=== PATIENT | female | born 1985 | race Caucasian/White ===

== ENCOUNTER → 2020-07-17 15:15 | Outpatient (BNVA) | payer BC, SELFPAY | PROVIDERS: Family Provider Pediatrics Adolescent Medicine; Visit Provider Nurse Practitioner Family | DX: Z11.59 Encounter for screening for other viral diseases (principal) | CPT/HCPCS: 87635 ==

== ENCOUNTER → 2020-08-25 12:50 | Outpatient (BNVA) | payer BC, SELFPAY | PROVIDERS: Family Provider Pediatrics Adolescent Medicine; Visit Provider Nurse Practitioner Family | DX: Z20.828 Contact with and (suspected) exposure to other viral communicable diseases (principal) | CPT/HCPCS: 87635 ==

== ENCOUNTER 2021-05-01 09:10 | Emergency (ER) | payer BC, SELFPAY ==
--- NOTE | 2021-05-01 09:18 | CT_ITS ---
WS: [id number] CT ABDOMEN PELVIS NONCONTRAST AND CONTRAST TECHNIQUE: Noncontrast and contrast enhanced CT of the abdomen and pelvis with coronal and sagittal r eformatted images. CLINICAL INFORMATION: abd pain, nv COMPARISON: None. DLP: 577.02 mGy.cm (accession [id number]), 799.54 mGy.cm (accession [id number]) All CT scans at [facility] use at least one of these dose optimization techniques: automat ed exposure control; mA and/or kV adjustment per patient size (includes targeted exams where dose is matched to clinical indication); or iterative reconstruction. FINDINGS: Adrenal glands are normal. No obstructing renal or ureteral calculi. No hydronephrosis in either kidn ey. Mild diffuse fatty infiltration of the liver. Normal gallbladder. Normal portal vein and splenic vein. Fluid distended stomach with air-fluid level. Mild submucosal enhancement involving the stomach and proximal duodenum can be seen with gastroduodenitis. Lung bases are well aerated. Normal spleen. Adrenal glands are normal. Normal renal parenchymal enhancement. No hydronephrosis. Normal caliber abdominal aorta. Pancreas is normal. Tiny fat-containing umbilical hernia. Normal sigm oid colon. No evidence of small or large bowel obstruction. Colon is decompressed. Small amount of martínez bmucosal enhancement and induration more prominent involving the transverse colon. Small amount of free fluid in the cul-de-sac. Heterogeneous uterine enhancement likely physiologic. B ilateral ovarian cysts largest on the left measuring 10 x 10 x 18 mm with peripheral enhancement cons istent with corpus luteum or hemorrhagic cyst. CT/CT kidney stone [id number] IMPRESSION: 1. Mild diffuse fatty infiltration of the liver. 2. Normal bilateral renal parenchymal enhancement. No hydronephrosis. No obstr ucting renal or ureteral calculi. 3. Small amount of free fluid in the cul-de-sac with peripherally enhancing le ft corpus luteum or a hemorrhagic cyst measuring 10 x 10 x 18 mm. 4. Distended fluid-filled stomach with air-fluid level. Mild gastroduodenal en hancement can be seen with gastroduodenitis. 5. Colon is decompressed with mild submucosal enhancement involving the transv erse colon. This may be incidental but recommend correlation for infectious or inflammatory colitis symptoms. Notified Dr. Gage at 05/01/2021 11:24 AM.
[2021-05-01 09:27] VITALS: BP 153/105; PULSE 65; RESP 18; TEMP 36.6; O2SAT 100; BMI 23.9
--- NOTE | 2021-05-01 09:55 | PC.PHAR ---
ELIZABETH FROM [facility] [phone] STATES THE PT WAS TAKING SUBUTEX 8MG QAM AND 10MG HS-STATES THE DR INCREASED TODAY TO 10MG BID STATES THE PT ISNT AWARE OF THE CHANGE YET
--- NOTE | 2021-05-01 10:02 | CT_ITS ---
WS: [id number] CT ABDOMEN PELVIS NONCONTRAST AND CONTRAST TECHNIQUE: Noncontrast and contrast enhanced CT of the abdomen and pelvis with coronal and sagittal r eformatted images. CLINICAL INFORMATION: abd pain, nv COMPARISON: None. DLP: 577.02 mGy.cm (accession [id number]), 799.54 mGy.cm (accession [id number]) All CT scans at [facility] use at least one of these dose optimization techniques: automat ed exposure control; mA and/or kV adjustment per patient size (includes targeted exams where dose is matched to clinical indication); or iterative reconstruction. FINDINGS: Adrenal glands are normal. No obstructing renal or ureteral calculi. No hydronephrosis in either kidn ey. Mild diffuse fatty infiltration of the liver. Normal gallbladder. Normal portal vein and splenic vein. Fluid distended stomach with air-fluid level. Mild submucosal enhancement involving the stomach and proximal duodenum can be seen with gastroduodenitis. Lung bases are well aerated. Normal spleen. Adrenal glands are normal. Normal renal parenchymal enhancement. No hydronephrosis. Normal caliber abdominal aorta. Pancreas is normal. Tiny fat-containing umbilical hernia. Normal sigm oid colon. No evidence of small or large bowel obstruction. Colon is decompressed. Small amount of martínez bmucosal enhancement and induration more prominent involving the transverse colon. Small amount of free fluid in the cul-de-sac. Heterogeneous uterine enhancement likely physiologic. B ilateral ovarian cysts largest on the left measuring 10 x 10 x 18 mm with peripheral enhancement cons istent with corpus luteum or hemorrhagic cyst. CT/CT abdomen pelvis w con* [id number] IMPRESSION: 1. Mild diffuse fatty infiltration of the liver. 2. Normal bilateral renal parenchymal enhancement. No hydronephrosis. No obstr ucting renal or ureteral calculi. 3. Small amount of free fluid in the cul-de-sac with peripherally enhancing le ft corpus luteum or a hemorrhagic cyst measuring 10 x 10 x 18 mm. 4. Distended fluid-filled stomach with air-fluid level. Mild gastroduodenal en hancement can be seen with gastroduodenitis. 5. Colon is decompressed with mild submucosal enhancement involving the transv erse colon. This may be incidental but recommend correlation for infectious or inflammatory colitis symptoms. Notified Dr. Gage at 05/01/2021 11:24 AM.
--- NOTE | 2021-05-01 10:07 | W.ED.ABDPA2 ---
HPI - Abdominal Pain General: Chief Complaint: Abdominal Pain Stated Complaint: SEVERE ABD PAIN N/V/D Time Seen by Provider: 05/01/21 09:25 History of Present Illness: HPI narrative: 36-year-old female presents emergency room complaining of nausea and vomiting. Patient states she has had this intermittently for the last year today has been much more intense. She is not had any ellen hematemesis but at times old vomit to the point where she has small streaks of blood. Patient is a recovering alcoholic takes Subutex but admits that she does drink even when she is taking it had several drinks last night. She denies any hematochezia. She is not previously been evaluated for this. She denies any dysuria urgency or frequency no hematuria. No previous abdominal surgeries. She refers most of the pain to the periumbilical region but states it is very diffuse. No flank pain. No chest pain or shortness of breath. Patient originally arrived she was having cramping in the extremities and circumoral numbness. MD elicited complaint: abdominal pain Onset (ago): month(s) Pain Consistency: intermittent Location: Diffuse Severity: severe Quality: cramping Radiation: none Exacerbating factors: other (Drinking alcohol) Relieving factors: nothing Associated Symptoms: Reports anorexia, bloating, coffee ground emesis, GI cramping, loose stools, nausea, poor appetite and vomiting; Denies belching, change in bowel habits, change in stool character, chills, constipation, diarrhea, dyspepsia, dysuria, excessive flatus, fever(s), heartburn, hematochezia, hematuria, hematemesis, fecal incontinence, melena and syncope Related Data: Date of Last Menstrual Period: 04/07/21 Review of Systems Const: Denies: fever(s) or chills ENMT: Denies: throat pain, ear or mastoid pain, nasal discharge or nasal congestion Card: Denies: syncope Resp: Denies: dyspnea, productive cough or non-productive cough GI: Reports: nausea, vomiting, coffee ground emesis, bloating and GI cramping; Denies: hematemesis, heartburn, diarrhea, constipation, belching, excessive flatus, fecal incontinence, change in bowel habits, change in stool character, hematochezia or melena : Denies: dysuria or hematuria Skin/Breast: Denies: rash or pruritus [facility] ED PFSH: Medical History (Updated 05/01/21 @ 11:49 by Tristen Gage DO) No pertinent past medical history Patient denies history of PE/DVT/clotting disorders, asthma, lung, liver heart, thyroid, kidney disease, hypertension or diabetes. PCP: Dr. Bey Surgical History S/P dilatation and curettage Done for interruption of Family History Grandfather Diabetes paternal Prostate cancer paternal Denies family history of Colon cancer Ovarian cancer Heart disease Hyperlipidemia Breast cancer Hypertension Uterine cancer Thyroid condition Stroke Social History Smoking and tobacco status: former smoker Alcohol intake: current Additional social history: - Tobacco Use: Started smoking at age 16 and smoked socially off and on until age 29 with she quit. 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 Female Reproductive History: Date of last menstrual period: 04/07/21 Physical Exam Const: ORIENTATION/CONSCIOUSNESS: Yes awake, Yes oriented to person, Yes oriented to place and Yes oriented to time HENMT: COMMON NORMALS: normocephalic and atraumatic HEAD & SCALP: normocephalic and atraumatic Neck/C-Spine: COMMON NORMALS: no JVD Resp: COMMON NORMALS: normal respiratory effort, No retractions, No use of accessory muscles and clear to auscultation bilaterally AUSCULTATION: clear to auscultation bilaterally Cardio: COMMON NORMALS: no JVD, regular rate, regular rhythm and No murmurs present (Cardio) RATE: regular rate RHYTHM: regular rhythm GI: COMMON NORMALS: No hepatosplenomegaly present AUSCULTATION: Yes normoactive bowel sounds PALPATION: Yes Tenderness to palpation present (GI) (Diffuse tenderness), No Guarding due to palpation present (GI) and Yes No hepatosplenomegaly present Extremity: COMMON NORMALS: normal to inspection, capillary refill normal, no clubbing, cyanosis or edema, no calf tenderness and no pedal edema Neuro: SENSORIUM/ORIENTATION: Yes oriented to person, Yes oriented to place and Yes oriented to time Skin: COMMON NORMALS: no rashes or lesions noted GENERAL SKIN EXAM: no rashes or lesions noted Course Vital Signs: Vital signs: Vital Signs Temperature 97.9 F 05/01/21 09:27 Pulse Rate 89 05/01/21 12:04 Respiratory Rate 16 05/01/21 12:04 Blood Pressure 98/78 05/01/21 12:04 Pulse Oximetry 99 05/01/21 12:04 MDM - Abdominal Pain MDM Narrative: Medical decision making narrative: Reviewed lab findings with the patient. Her blood alcohol is significantly elevated although she states she has not drank for some time. I think this is largely a result of drinking while in the Subutex. Encourage patient stop drinking also encouraged her to follow-up with an outpatient treatment program such as [facility]. Lab Data: Labs: Lab Results 05/01/21 05/01/21 05/01/21 Range/Units 10:15 10:15 10:46 WBC 14.1 H (4.0-10.0) 10^3/ uL RBC 4.16 (4.1-5.3) 10^6/u L Hgb 13.3 (11.5-15.3) g/dL Hct 39.7 (37.0-47.0) % MCV 95.4 (81-99) fL MCH 32.0 (28.0-34.0) pg MCHC 33.5 (30.0-36.0) g/dL RDW 13.5 (12.1-15.1) % Plt Count 312 (130-400) 10^3/c mm MPV 10.4 (7.4-10.4) fL Neut % (Auto) 83.9 % Lymph % (Auto) 11.5 % [place] % (Auto) 2.8 % Eos % (Auto) 0.2 % Baso % (Auto) 0.9 % Neut # (Auto) 11.79 H (1.8-7.7) 10^3/u L Lymph # (Auto) 1.6 (0.8-4.8) 10^3/u L [place] # (Auto) 0.4 (0.2-0.9) 10^3/u L Eos # (Auto) 0.0 (0.0-0.8) 10^3/u L Baso # (Auto) 0.1 (0.0-0.1) 10^3/u L Nucleated RBC % (a uto) 0 % Nucleated RBCs # 0.0 /100WBC Sodium (136-145) mmol/L Potassium (3.5-5.1) mmol/L Chloride (98-107) mmol/L Carbon Dioxide (22-29) mmol/L Anion Gap (5-19) BUN (6-20) mg/dL Creatinine (0.5-0.9) mg/dL GFR Calculation (90-130) mL/min Glucose (65-115) mg/dL Calculated Osmolal ity (285-295) mOsm/k g Calcium (8.5-10.5) mg/dL Total Bilirubin (0.15-1.2) mg/dL AST (0-32) U/L ALT (0-33) U/L Alkaline Phosphata se (35-105) IU/L Total Protein (6.6-8.7) g/dL Albumin (3.5-5.2) g/dL Globulin (1.3-4.6) g/dL Lipase (13-60) U/L HCG, Qual Negative (Negative) Urine Color Yellow (Yellow) Urine Appearance Clear (CLEAR) Urine pH 6 (5-7) Ur Specific Gravit y 1.015 (1.005-1.030) Urine Protein Neg (Negative) Urine Glucose (UA) Norm (Normal) Urine Ketones 2+ H (Negative) Urine Blood Neg (Negative) Urine Nitrate Negative (Negative) Urine Bilirubin Neg (Negative) Urine Urobilinogen Norm (Negative) mg/dL Ur Leukocyte Ying ase Negative (Negative) Ethyl Alcohol (0-10) mg/dL Serum Ketones (Negative) 05/01/21 05/01/21 05/01/21 Range/Units 10:46 10:46 10:46 WBC (4.0-10.0) 10^3/ uL RBC (4.1-5.3) 10^6/u L Hgb (11.5-15.3) g/dL Hct (37.0-47.0) % MCV (81-99) fL MCH (28.0-34.0) pg MCHC (30.0-36.0) g/dL RDW (12.1-15.1) % Plt Count (130-400) 10^3/c mm MPV (7.4-10.4) fL Neut % (Auto) % Lymph % (Auto) % [place] % (Auto) % Eos % (Auto) % Baso % (Auto) % Neut # (Auto) (1.8-7.7) 10^3/u L Lymph # (Auto) (0.8-4.8) 10^3/u L [place] # (Auto) (0.2-0.9) 10^3/u L Eos # (Auto) (0.0-0.8) 10^3/u L Baso # (Auto) (0.0-0.1) 10^3/u L Nucleated RBC % (a uto) % Nucleated RBCs # /100WBC Sodium 141 (136-145) mmol/L Potassium 3.6 (3.5-5.1) mmol/L Chloride 99 (98-107) mmol/L Carbon Dioxide 16 L (22-29) mmol/L Anion Gap 29.6 H (5-19) BUN 8 (6-20) mg/dL Creatinine 0.6 (0.5-0.9) mg/dL GFR Calculation 113.1 (90-130) mL/min Glucose 94 (65-115) mg/dL Calculated Osmolal ity 290 (285-295) mOsm/k g Calcium 9.0 (8.5-10.5) mg/dL Total Bilirubin 0.3 (0.15-1.2) mg/dL AST 23 (0-32) U/L ALT 16 (0-33) U/L Alkaline Phosphata se 65 (35-105) IU/L Total Protein 7.8 (6.6-8.7) g/dL Albumin 5.3 H (3.5-5.2) g/dL Globulin 2.5 (1.3-4.6) g/dL Lipase 9 L (13-60) U/L HCG, Qual (Negative) Urine Color (Yellow) Urine Appearance (CLEAR) Urine pH (5-7) Ur Specific Gravit y (1.005-1.030) Urine Protein (Negative) Urine Glucose (UA) (Normal) Urine Ketones (Negative) Urine Blood (Negative) Urine Nitrate (Negative) Urine Bilirubin (Negative) Urine Urobilinogen (Negative) mg/dL Ur Leukocyte Ying ase (Negative) Ethyl Alcohol 164 H (0-10) mg/dL Serum Ketones Negative (Negative) Discharge Plan Discharge Patient Disposition: Home Clinical Impression: Acute alcoholic gastritis, Alcoholism Condition: Stable Prescriptions: New Zofran 4 mg tablet 4 mg PO Q6H PRN (Reason: nausea and vomiting) Qty: 20 RF: 0 Prilosec OTC 20 mg tablet,delayed release (DR/EC) 20 mg PO DAILY 28 Days RF: 0 No Action hydroxyzine HCl 25 mg tablet 12.5 - 25 mg PO Q4H PRN (Reason: Itching) RF: 0 mupirocin 2 % ointment 1 applic TOPICAL BID RF: 0 Subutex 2 mg Tablet, Sublingual See Rx Instructions .ROUTE .COMPLEX RF: 0 Discharge Orders: Discharge ED (Routine); Ordered 05/01/21 Ordered By: Tristen Gage Referrals: Jaycob Levy MD [Primary Care Provider] - Discharge Diet: Usual diet Discharge Activity: Limit activity as instructed Patient Instructions: Opioid Safety Activity Restrictions/Additional Instructions: Recommend you abstain from alcohol completely. Also recommend you seek out assistance with alcohol abstinence. [facility] here in [place] can be of assistance their phone number is [phone]. 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
[2021-05-01 10:27] LABS: HCG Qualitative Urine. Negative (Negative)
[2021-05-01 10:54] LABS: Basophils # 0.1 10^3/uL (0.0-0.1); Basophils % 0.9 %; Eosinophils % 0.2 %; Hematocrit 39.7 % (37.0-47.0); Hemoglobin 13.3 g/dL (11.5-15.3); Lymphocytes # 1.6 10^3/uL (0.8-4.8); Lymphocytes % 11.5 %; Mean Corpuscular HGB Conc 33.5 g/dL (30.0-36.0); Mean Corpuscular Volume 95.4 fL (81-99); Mean Platelet Volume 10.4 fL (7.4-10.4); Monocytes # 0.4 10^3/uL (0.2-0.9); Monocytes % 2.8 %; Neutrophils # 11.79 10^3/uL (1.8-7.7); Neutrophils % 83.9 %; Nucleated Red Blood Cells % 0 %; Platelet Count 312 10^3/cmm (130-400); Red Blood Count 4.16 10^6/uL (4.1-5.3); Red Cell Distribution Width 13.5 % (12.1-15.1); White Blood Count 14.1 10^3/uL (4.0-10.0)
[2021-05-01 11:01] LABS: Ketone (Acetest) Serum Negative (Negative)
[2021-05-01 11:02] VITALS: BP 135/87; PULSE 61; O2SAT 97
[2021-05-01] MEDS: iohexol 300 mg/mL 100 mL Btl IV (11:09)
[2021-05-01 11:15] LABS: Add Urine Microscopic? NO; Charge for UA Resulting for Rev
[2021-05-01 11:23] LABS: Alanine Aminotransferase 16 U/L (0-33); Albumin Level 5.3 g/dL (3.5-5.2); Alcohol Level 164 mg/dL (0-10); Alkaline Phosphatase 65 IU/L (35-105); Anion Gap 29.6 (5-19); Aspartate Amino Transferase 23 U/L (0-32); Blood Urea Nitrogen 8 mg/dL (6-20); Carbon Dioxide 16 mmol/L (22-29); Chloride 99 mmol/L (98-107); Globulin 2.5 g/dL (1.3-4.6); Glomerular Filtration Rate 113.1 mL/min (90-130); Glucose 94 mg/dL (65-115); Osmolality Calculated 290 mOsm/kg (285-295); Potassium 3.6 mmol/L (3.5-5.1); Sodium 141 mmol/L (136-145); Total Bilirubin 0.3 mg/dL (0.15-1.2); Total Protein 7.8 g/dL (6.6-8.7)
[2021-05-01] MEDS: ondansetron 2 mg/ML SDV 2 mL 4 MG IVP (11:26)
[2021-05-01] MEDS: LORazepam 2 mg/mL INJ 1 mL IVP (11:27)
[2021-05-01 11:34] LABS: Bilirubin Urine Neg (Negative); Blood Urine Neg (Negative); Glucose Urine UA Norm (Normal); Ketones Urine 2+ (Negative); Leukocyte Esterase Urine Negative (Negative); Nitrate Urine Negative (Negative); Protein Urine Neg (Negative); Specific Gravity, Urine 1.015 (1.005-1.030); Urine Appearance Clear (CLEAR); Urine Color Yellow (Yellow); Urobilinogen Urine Norm (Negative); pH Urine 6 (5-7)
[2021-05-01] MEDS: pantoprazole 40 mg SDV IVP (11:36)
[2021-05-01] MEDS: sodium chloride 0.9% 1,000 ML 999 ML IV (11:36)
[2021-05-01] MEDS: lidocaine 2% viscous 15 ML, aluminum-mag hydrox-simethicon 30 ML, sucralfate oral liq 1 GM PO (11:39)
[2021-05-01 11:44] VITALS: BP 109/81; PULSE 82; RESP 17; O2SAT 100
[2021-05-01 11:50] LABS: Lipase 9 U/L (13-60)
[2021-05-01 12:04] VITALS: BP 98/78; PULSE 89; RESP 16; O2SAT 99
== END 2021-05-01 12:08 | disposition home or self-care (01) ==
PROVIDERS: Nurse Practitioner Family; Emergency Provider Family Medicine; PCP Family Medicine
DX: K29.20 Alcoholic gastritis without bleeding (principal); F10.20 Alcohol dependence, uncomplicated; Z87.891 Personal history of nicotine dependence
CPT/HCPCS: 74176; 74177; 80053; 80307; 81003; 81025; 82009; 83690; 85025; 96374; 96375; 99284; C9113; J2060; J2405; J7030; Q9967

== ENCOUNTER → 2021-07-04 15:03 | Outpatient (BNVA) | payer BC, SELFPAY | PROVIDERS: PCP Family Medicine; Referring Provider Family Medicine; Visit Provider Dermatology | DX: R21 Rash and other nonspecific skin eruption (principal) | CPT/HCPCS: 87220 ==

== ENCOUNTER 2022-02-03 01:00 | Emergency (ER) | payer BC, SELFPAY ==
[2022-02-03 01:07] VITALS: BP 164/104; PULSE 97; RESP 24; TEMP 36.6; O2SAT 99; BMI 25.7
[2022-02-03 01:10] VITALS: BP 103/74; PULSE 73; RESP 18; O2SAT 99
--- NOTE | 2022-02-03 01:11 | ED_ITS ---
Documented by User: CHANDRAKANT Krishnamurthy 02/03/22 02:45 HPI - Wound/Laceration General: Chief Complaint: Wound/Laceration Stated Complaint: 2 laceration left arm Time Seen by Provider: 02/03/22 01:10 History of Present Illness: 36-year-old female comes in today with complaints of injury to the left forearm. Patient was riding a skateboard and lost control and fell into a giovany wire fence. Patient has some abrasions to bilateral knees. Patient has 2 significant lacerations to the left forearm. Patient does report ingesting 2 beers prior to arrival to the ER. Patient appears well. Patient appears no acute distress. Review of Systems General: Reports: 10 or more systems reviewed and unremarkable except in HPI and below Card: Denies: chest pain Resp: Denies: dyspnea Musc: Denies: neck pain Skin/Breast: Denies: rash PFS ED PFSH: Medical History No pertinent past medical history Denies diabetes, asthma, hypertension, seizures, DVT/PE. PCP: Dr. Levy Surgical History S/P dilatation and curettage 2006-done for interruption of Family History Grandfather Diabetes paternal Prostate cancer paternal Denies family history of Colon cancer Ovarian cancer Heart disease Hyperlipidemia Breast cancer Hypertension Uterine cancer Thyroid condition Stroke Female Reproductive History: Date of last menstrual period: 04/07/21 Physical Exam Const: COMMON NORMALS: alert HENMT: COMMON NORMALS: normocephalic HEAD & SCALP: normocephalic Neck/C-Spine: COMMON NORMALS: full ROM Resp: COMMON NORMALS: normal respiratory effort and clear to auscultation bilaterally AUSCULTATION: clear to auscultation bilaterally Cardio: COMMON NORMALS: regular rate and regular rhythm RATE: regular rate RHYTHM: regular rhythm Back/Pelvis: COMMON NORMALS: thoracic and lumbar spine normal to inspection Extremity: LEFT UPPER EXTREMITY: Yes lower arm (2 lacerations to left forearm, linear, one of them is 6 cm the other 8 cm) Left lower arm: Yes inspection, Yes palpation and Yes neurovascular exam Neuro: SENSORIUM/ORIENTATION: Yes alert Skin: TRAUMA: laceration (2 linear lacerations left forearm) linear Procedures Laceration Laceration 1: Site: upper extremity Side (If applicable): left Size (cm): 6 Description: linear Depth: simple, single layer Local Anesthetic: lidocaine 1% Amount of anesthesia used (mL): 8 Pre-repair: wound explored and irrigated extensively Skin layer closed with: nylon Size (cm): 4-0 Number of sutures: 7 Technique: horizontal mattress Laceration 2: Site: upper extremity Side (If applicable): left Size (cm): 8 Description: linear Depth: simple, single layer Local Anesthetic: lidocaine 1% Amount of anesthesia used (mL): 8 Pre-repair: wound explored and irrigated extensively Skin layer closed with: nylon Size (cm): 4-0 Number of sutures: 8 Technique: horizontal mattress Course Vital Signs: Vital signs: Vital Signs Temperature 97.8 F 02/03/22 01:07 Pulse Rate 68 02/03/22 03:05 Respiratory Rate 18 02/03/22 03:05 Blood Pressure 116/52 02/03/22 03:05 Pulse Oximetry 99 02/03/22 03:05 MDM - Wound/Laceration Medical Decision Making 36-year-old female comes in today with complaints of injury to the left extremity. On exam patient has 2 lacerations to the left arm. Also noticed on exam patient has an abrasion to the right parietal scalp. Patient was skateboarding and fell into a fence. Neck has normal range of motion without any tenderness. Spine has no tenderness. Abdomen soft nontender. Skin is warm and dry. All joints move without difficulty. Differential diagnosis includes but not limited to intracranial bleeding, laceration to the arm, need for prophylaxis tetanus, concussion. Wounds were closed with 4-[address] of the head noted no intracranial bleeding. Reviewed exam with patient with recommendations for treatment and follow-up. Patient reported understanding. Lab Data Radiology Impressions Head CT 02/03/22 01:22 IMPRESSION: There are no acute intracranial findings Discharge Plan Discharge Patient Disposition: Home Clinical Impression: Laceration Head injury, acute, without loss of consciousness Qualifiers: Encounter type: initial encounter Qualified Code(s): S09.90XA - Unspecified injury of head, initial encounter Condition: Stable Prescriptions: New ibuprofen 600 mg tablet 600 mg PO Q6H PRN (Reason: pain) Qty: 30 0RF cephalexin 500 mg capsule 500 mg PO BID 7 Days Qty: 14 0RF No Action trazodone 50 mg tablet 25 mg PO DAILY PRN0RF ketoconazole 2 % cream 1 applic topical BID Qty: 30 1RF Rx Instructions: 2-3 x per day x 4 weeks prednisone 10 mg tablet 10 mg PO DAILY Qty: 60 0RF Rx Instructions: Take 5 tabs by mouth for 4 days, then 4 tabs x 4 days, 3 tabs x 4 days, 2 tabs x 4 days, then 1 tab x 4 days hydroxyzine HCl 25 mg tablet 12.5 - 25 mg PO Q4H PRN (Reason: Itching) 0RF buprenorphine HCl 2 mg tablet, sublingual 8 mg .ROUTE BID 0RF Rx Instructions: 8 mg twice a day; Discharge Orders: Discharge ED (Routine); Ordered 02/03/22 Ordered By: Galindo Webb Referrals: Jaycob Levy MD [Primary Care Provider] - Discharge Diet: Usual diet Discharge Activity: Increase activity as tolerated Patient Instructions: Laceration (ED), Opioid Safety Activity Restrictions/Additional Instructions: Keep wound clean and dry. Use acetaminophen and ibuprofen for pain. Increase activity as tolerated. Follow-up with primary care for further instruction. Sutures need to come out in 10 days. Take antibiotic 1 capsule twice a day for 7 days. Return to ER for new concerns. Coding Level of Care Code ED Flat Bed Knitter for Chg Fwd Exam Comprehensive Documented by User: Bird Maldonado DO 02/03/22 04:14 HPI - Wound/Laceration General: Chief Complaint: Wound/Laceration Stated Complaint: 2 laceration left arm Time Seen by Provider: 02/03/22 01:10 PFSH ED PFSH: Medical History No pertinent past medical history Denies diabetes, asthma, hypertension, seizures, DVT/PE. PCP: Dr. Levy Surgical History S/P dilatation and curettage 2006-done for interruption of Family History Grandfather Diabetes paternal Prostate cancer paternal Denies family history of Colon cancer Ovarian cancer Heart disease Hyperlipidemia Breast cancer Hypertension Uterine cancer Thyroid condition Stroke Course Vital Signs: Vital signs: Vital Signs Temperature 97.8 F 02/03/22 01:07 Pulse Rate 68 02/03/22 03:05 Respiratory Rate 18 02/03/22 03:05 Blood Pressure 116/52 02/03/22 03:05 Pulse Oximetry 99 02/03/22 03:05 MDM - Wound/Laceration Medical Decision Making 36-year-old female comes in today with complaints of injury to the left extremity. On exam patient has 2 lacerations to the left arm. Also noticed on exam patient has an abrasion to the right parietal scalp. Patient was skateboarding and fell into a fence. Neck has normal range of motion without any tenderness. Spine has no tenderness. Abdomen soft nontender. Skin is warm and dry. All joints move without difficulty. Differential diagnosis includes but not limited to intracranial bleeding, laceration to the arm, need for prophylaxis tetanus, concussion. Wounds were closed with 4-[address] of the head noted no intracranial bleeding. Reviewed exam with patient with recommendations for treatment and follow-up. Patient reported understanding. This patient was originally seen by CHANDRAKANT Ritter.? I agree with his history, evaluation, and treatment. Lab Data Radiology Impressions Head CT 02/03/22 01:22 IMPRESSION: There are no acute intracranial findings Discharge Plan Discharge Patient Disposition: Home Clinical Impression: Laceration Head injury, acute, without loss of consciousness Qualifiers: Encounter type: initial encounter Qualified Code(s): S09.90XA - Unspecified injury of head, initial encounter Condition: Stable Prescriptions: New ibuprofen 600 mg tablet 600 mg PO Q6H PRN (Reason: pain) Qty: 30 0RF cephalexin 500 mg capsule 500 mg PO BID 7 Days Qty: 14 0RF No Action trazodone 50 mg tablet 25 mg PO DAILY PRN0RF ketoconazole 2 % cream 1 applic topical BID Qty: 30 1RF Rx Instructions: 2-3 x per day x 4 weeks prednisone 10 mg tablet 10 mg PO DAILY Qty: 60 0RF Rx Instructions: Take 5 tabs by mouth for 4 days, then 4 tabs x 4 days, 3 tabs x 4 days, 2 tabs x 4 days, then 1 tab x 4 days hydroxyzine HCl 25 mg tablet 12.5 - 25 mg PO Q4H PRN (Reason: Itching) 0RF buprenorphine HCl 2 mg tablet, sublingual 8 mg .ROUTE BID 0RF Rx Instructions: 8 mg twice a day; Discharge Orders: Discharge ED (Routine); Ordered 02/03/22 Ordered By: Galindo Webb Referrals: Jaycob Levy MD [Primary Care Provider] - Discharge Diet: Usual diet Discharge Activity: Increase activity as tolerated Patient Instructions: Laceration (ED), Opioid Safety Activity Restrictions/Additional Instructions: Keep wound clean and dry. Use acetaminophen and ibuprofen for pain. Increase activity as tolerated. Follow-up with primary care for further instruction. Sutures need to come out in 10 days. Take antibiotic 1 capsule twice a day for 7 days. Return to ER for new concerns. Coding Level of Care Code ED Flat Bed Knitter for Haritha Fwd Exam Comprehensive
--- NOTE | 2022-02-03 01:22 | CTR_ITS ---
. PROCEDURE INFORMATION: Exam: CT Head Without Contrast Exam date and time: 02/03/2022 2:03 AM Age: 36 years old Clinical indication: Injury or trauma; Blunt trauma (contusions or hematomas); Injury details: Fall, hit right side of head; Additional info: Fall/head injury TECHNIQUE: Imaging protocol: Computed tomography of the head without contrast. Radiation optimization: All CT scans at this facility use at least one of these dose optimization techniques: automated exposure control; mA and/or kV adjustment per patient size (includes targeted exams where dose is matched to clinical indication); or iterative reconstruction. COMPARISON: No relevant prior studies available. RADIATION DOSE METRICS: Total DLP (mGy-cm): 712.84 FINDINGS: Brain: Normal. No hemorrhage. Unremarkable white matter. No mass effect. Cerebral ventricles: No ventriculomegaly. Paranasal sinuses: Mucosal thickening and fluid is seen within the right frontal, bilateral ethmoidal and right sphenoidal sinus. Mastoid air cells: Visualized mastoid air cells are well aerated. Bones/joints: Unremarkable. No acute fracture. Soft tissues: There is some scalp swelling seen in the right frontoparietal region. CT/CT head wo con* [id number] IMPRESSION: There are no acute intracranial findings
[2022-02-03] MEDS: cephALEXin 500 mg Capsule PO (01:29)
[2022-02-03] MEDS: lidocaine 1% INJ 20 mL INJECTION (01:30)
[2022-02-03] MEDS: acetaminophen 500 mg Tablet 1000 MG PO (03:04)
[2022-02-03 03:05] VITALS: BP 116/52; PULSE 68; RESP 18; O2SAT 99
== END 2022-02-03 03:05 | disposition home or self-care (01) ==
PROVIDERS: Emergency Provider Nurse Practitioner Family; PCP Family Medicine
DX: S51.812A Laceration without foreign body of left forearm, initial encounter (principal); S09.90XA Unspecified injury of head, initial encounter; V00.132A Skateboarder colliding with stationary object, initial encounter; Z79.891 Long term (current) use of opiate analgesic; Z79.52 Long term (current) use of systemic steroids
CPT/HCPCS: 12005; 70450; 99283

== ENCOUNTER 2023-01-05 22:40 | Emergency (ER) | payer BC, SELFPAY ==
[2023-01-05 23:07] VITALS: BP 159/98; PULSE 81; RESP 20; TEMP 36.7; O2SAT 97; BMI 26.5
--- NOTE | 2023-01-05 23:28 | ED_ITS ---
HPI - Skin/Abscess/Foreign Bdy General: Chief complaint: Skin/Abscess/Foreign Body Stated complaint: Poss Poison Gladys or Symack Time Seen by Provider: 01/05/23 23:14 History of Present Illness: 37-year-old female comes in today with rash to the face. Patient had a previous episode back in July 2021. Patient believes it is secondary to contact dermatitis may be to poison gladys. Patient reports no other rashes to other parts of the body. Patient does have a dog that will rub up against her face. Patient is also being evaluated by dermatology in 2020 and was treated at that time for allergic contact dermatitis on review of the record. Patient denies any fever. Patient reports itching and discomfort to the face. Associated symptoms: Deny fever(s), nausea or vomiting Review of Systems Const: Denies: fever(s) Card: Denies: chest pain Resp: Denies: dyspnea GI: Denies: nausea or vomiting : Denies: difficulty voiding Skin/Breast: Reports: rash and pruritus [facility] ED PFSH: Medical History No pertinent past medical history Denies diabetes, asthma, hypertension, seizures, DVT/PE. PCP: Dr. Levy Surgical History S/P dilatation and curettage 2005-done for interruption of Family History Grandfather Diabetes paternal Prostate cancer paternal Denies family history of Colon cancer Ovarian cancer Heart disease Hyperlipidemia Breast cancer Hypertension Uterine cancer Thyroid condition Stroke Physical Exam Const: COMMON NORMALS: alert HENMT: COMMON NORMALS: normocephalic HEAD & SCALP: normocephalic FACE & SINUS: other (Facial rash) Neck/C-Spine: COMMON NORMALS: full ROM Resp: COMMON NORMALS: normal respiratory effort and clear to auscultation bilaterally AUSCULTATION: clear to auscultation bilaterally Cardio: COMMON NORMALS: regular rate and regular rhythm RATE: regular rate RHYTHM: regular rhythm Extremity: COMMON NORMALS: normal to inspection Neuro: SENSORIUM/ORIENTATION: Yes alert Skin: COMMON NORMALS: turgor normal GENERAL SKIN EXAM: turgor normal RASHES: rashes noted (Patchy dry rash to the face) Course Vital Signs: Vital signs: Vital Signs Temperature 98.1 F 01/05/23 23:07 Pulse Rate 81 01/05/23 23:07 Respiratory Rate 20 H 01/05/23 23:07 Blood Pressure 159/98 01/05/23 23:07 Pulse Oximetry 97 01/05/23 23:07 Oxygen Delivery Me thod Room Air 01/05/23 23:07 MDM - Skin/Abscess/Foreign Bdy Medicial Decision Making 37-year-old female comes in today with complaints of a rash to the face. Patient believes she may have been exposed to poison gladys and has broke out for rash. On exam patient appears nontoxic. Rashes dry and flaky mainly to the circumference of the face. No other rashes noted on the body. Differential diagnosis includes but not limited to contact dermatitis, rosacea, lupus erythematous, perioral dermatitis. Patient's had previous episodes of similar rash. Patient believes he may have had exposure to poison gladys. We will go ahead and treat for poison gladys with a injection of triamcinolone 40 mg once. We will start patient on hydrocortisone cream 3 times daily to the face. And write for hydroxyzine to use for her discomfort. Encourage fluids rest and follow-up with primary care. Patient reported understanding. Discharge Plan Discharge Patient Disposition: Home Clinical Impression: Contact dermatitis Qualifiers: Contact dermatitis type: allergic Contact dermatitis trigger: other trigger Qualified Code(s): L23.89 - Allergic contact dermatitis due to other agents Condition: Stable Prescriptions: New hydroxyzine HCl 50 mg tablet 50 mg PO Q6H PRN (Reason: itching) Qty: 30 0RF hydrocortisone 2.5 % cream 1 applic topical TID Qty: 30 0RF Discharge Orders: Discharge ED (Routine); Ordered 01/05/23 Ordered By: Galindo Webb Referrals: Jaycob Levy MD [Primary Care Provider] - Discharge Diet: Usual diet Discharge Activity: Increase activity as tolerated Patient Instructions: Contact Dermatitis (ED) Activity Restrictions/Additional Instructions: Use medication as directed. Drink plenty of water and fluids with medication. Follow-up with primary care for further instruction. Return to ED for new concerns. Coding Level of Care Code ED Healthcare Representative for Haritha Presley
[2023-01-05] MEDS: hydrocortisone 1% cream 28 gm 1 APPLIC TOPICAL (23:45)
[2023-01-05] MEDS: hyDROXYzine 25 mg Capsule 50 MG PO (23:45)
[2023-01-05] MEDS: triamcinolone 40 mg/mL SDV IM (23:46)
[2023-01-06 00:21] VITALS: RESP 22
== END 2023-01-06 00:22 | disposition home or self-care (01) ==
PROVIDERS: Emergency Provider Nurse Practitioner Family; PCP Family Medicine
DX: L23.89 Allergic contact dermatitis due to other agents (principal)
CPT/HCPCS: 96372; 99284; J3301

== ENCOUNTER → 2023-02-05 11:45 | Outpatient (BNVA) | payer BC, SELFPAY | PROVIDERS: PCP Family Medicine; Visit Provider Obstetrics & Gynecology | DX: N97.9 Female infertility, unspecified (principal) | CPT/HCPCS: 83001; 83520; 84146; 84443; 85025 ==

== ENCOUNTER → 2025-02-11 08:36 | Outpatient (BNVA) | payer BC, SELFPAY | PROVIDERS: PCP Family Medicine; Visit Provider Family Medicine | DX: Z31.41 Encounter for fertility testing (principal) | CPT/HCPCS: 84144 ==

== ENCOUNTER 2025-02-28 17:44 | Emergency (ER) | payer SELFPAY ==
[2025-02-28 17:48] VITALS: PULSE 83; RESP 16; TEMP 37.2; O2SAT 94
--- NOTE | 2025-02-28 18:07 | XRR_ITS ---
PROCEDURE INFORMATION: Exam: XR Left Humerus Exam date and time: 02/28/2025 6:11 PM Age: 39 years old Clinical indication: Injury or trauma; Fall; Blunt trauma (contusions or hematomas); Arm, upper; Left TECHNIQUE: Imaging protocol: Radiologic exam of the left humerus. Views: 2 or more views. COMPARISON: No relevant prior studies available. FINDINGS: Bones/joints: Minimally displaced fracture involving the surgical neck of the humerus which extends into the base of the greater tuberosity. No dislocation. Soft tissues: Normal. XR/[place] [id number] IMPRESSION: As above.
--- NOTE | 2025-02-28 18:08 | ED_ITS ---
HPI - Extremity Problem General: Chief complaint: Extremity Injury, Upper Stated complaint: fell, L arm pain Time Seen by Provider: 02/28/25 18:02 History of Present Illness: Patient comes in with left arm pain. States that 3 nights ago she tripped and fell while walking landed on her left arm and spun. States that since then she has been having severe pain in her left upper arm. States that it is developed some significant bruising. On physical exam she has bruising to the anterior medial aspect of her left upper arm with bruising on the lateral left chest wall. She has decreased range of motion secondary to pain of the left upper arm. Pulses are intact. No tenderness palpation of her elbow or clavicle. Will check x-ray, treat pain with 5 mg of p.o. oxycodone, and reassess. Related Data Home Medications ?Medication ?Instructions ?Recorded ?Confirmed buprenorphine HCl 8 mg sublingual 8 mg sublingual ZOË Y 01/20/25 01/20/25 tablet Previous Rx's ?Medication ?Instructions ?Recorded hydrocortisone 2.5 % topical cream 1 applic topical TI D #30 grams 01/05/23 hydroxyzine HCl 50 mg tablet 50 mg PO Q6H PRN itching #30 tabs 01/05/23 clear blue 2 day ovulation tests #2 ea 02/25/25 oxycodone 5 mg capsule 5 mg PO Q6H PRN pain #15 cap s 02/28/25 Allergies Allergy/AdvReac Type Severity Reaction Status Date / Time No Known Allergies Allergy Verified 02/05/23 10:31 Review of Systems Musc: Reports: extremity pain, extremity swelling and deformity PFS ED PFSH: Medical History No pertinent past medical history Denies diabetes, asthma, hypertension, seizures, DVT/PE. PCP: Dr. Levy Surgical History S/P dilatation and curettage 2005-done for interruption of Family History (Updated 01/20/25 @ 09:26 by Porfirio Bey MD) Grandfather Diabetes paternal Prostate cancer paternal Family/Other Brain tumor Stroke Denies family history of Colon cancer Ovarian cancer Heart disease Hyperlipidemia Breast cancer Hypertension Uterine cancer Thyroid disease Social History (Updated 01/20/25 @ 19:49 by Porfirio Bey MD) Smoking and tobacco/nicotine status: never used tobacco/nicotine Alcohol intake: never Substance/Drug Use: current Other substance/drug use details: Former drug use - opiates, cocaine, meth Household members: spouse Marital status: Current occupation: [employer] Do you think of yourself as: Lesbian/Lindo/Homosexual Physical Exam Const: COMMON NORMALS: healthy appearing HENMT: COMMON NORMALS: normocephalic and atraumatic HEAD & SCALP: normocephalic and atraumatic Neck/C-Spine: COMMON NORMALS: full ROM and supple Resp: COMMON NORMALS: normal respiratory effort, No retractions and No use of accessory muscles Extremity: NARRATIVE EXTREMITY EXAM: bruising to the anterior medial aspect of her left upper arm with bruising on the lateral left chest wall. She has decreased range of motion secondary to pain of the left upper arm. Pulses are intact. No tenderness palpation of her elbow or clavicle Procedures Orthopedic Splinting/Casting Injury #1: Side: left Upper Extremity Injury Location: upper arm Upper Extremity Immobilizer: sling/shoulder immobilizer Additional Comments: Placed by the nurse, expected by me Course Vital Signs: Vital signs: Vital Signs Temperature 99.0 F 02/28/25 17:48 Pulse Rate 83 02/28/25 17:48 Respiratory Rate 16 02/28/25 18:51 Pulse Oximetry 94 02/28/25 17:48 Oxygen Delivery Fl thod Room Air 02/28/25 17:48 MDM - Extremity (Nontraumatic) Medical Decision Making On reassessment I talked with the patient about her test results. Her x-ray shows a nondisplaced left humeral surgical neck fracture. Will place her in a sling and swath, continue pain medication at home, refer her to orthopedic surgery, and discharged with precautions to return for worsening or changing symptoms. Lab Data Radiology Impressions Humerus X-Ray 02/28/25 18:07 IMPRESSION: As above. All radiology interpretation(s) finalized by discharge Discharge Plan Discharge Patient Disposition: Home Clinical Impression: Fracture, humerus Condition: Stable Prescriptions: New oxycodone 5 mg capsule 5 mg PO Q6H PRN (Reason: pain) Qty: 15 0RF No Action buprenorphine HCl 8 mg tablet, sublingual 8 mg sublingual DAILY (DME) clear blue 2 day ovulation tests See Rx Instructions .Route .MEDSUPPLY Qty: 2 6RF Rx Instructions: As directed hydroxyzine HCl 50 mg tablet 50 mg PO Q6H PRN (Reason: itching) Qty: 30 0RF hydrocortisone 2.5 % cream 1 applic topical TID Qty: 30 0RF Discharge Orders: Discharge ED (Routine); Ordered 02/28/25 Ordered By: Garfield Naranjo Referrals: Jeromy Hines MD [Physician, Orthopedics] Porfirio Bey MD [Primary Care Provider, Family Practice] Patient Instructions: Proximal Humerus Fracture (ED), Opioid Safety, Pain Management Print Language: Kittitian Coding Level of Care Code ED Gravel Weigher for Haritha Presley
[2025-02-28 18:51] VITALS: RESP 16
[2025-02-28] MEDS: oxyCODONE 5 mg IR Tab/Cap PO ×2 (18:51→19:42)
[2025-02-28 19:42] VITALS: RESP 17; O2SAT 97
[2025-02-28 19:47] VITALS: BP 122/78; PULSE 61; RESP 17; O2SAT 97
--- NOTE | 2025-02-28 19:59 | PC.NURSE ---
0- pt placed in universal immobilizer prior to discharge with no difficulties with return teaching demonstrated.
== END 2025-02-28 19:47 | disposition home or self-care (01) ==
PROVIDERS: Emergency Provider Emergency Medicine; PCP Family Medicine
DX: S42.215A Unspecified nondisplaced fracture of surgical neck of left humerus, initial encounter for closed fracture (principal); W01.0XXA Fall on same level from slipping, tripping and stumbling without subsequent striking against object, initial encounter; Y93.01 Activity, walking, marching and hiking
CPT/HCPCS: 73060; 99283; J9999

== ENCOUNTER → 2025-03-14 08:21 | Outpatient (BNVA) | payer BC, SELFPAY | PROVIDERS: PCP Family Medicine; Visit Provider Orthopaedic Surgery | DX: S42.295D Other nondisplaced fracture of upper end of left humerus, subsequent encounter for fracture with routine healing (principal); X58.XXXD Exposure to other specified factors, subsequent encounter | CPT/HCPCS: 73060 ==

== ENCOUNTER 2025-03-22 06:30 | Outpatient (RCR) | payer BC, SELFPAY | END 2025-04-21 23:59 | disposition home or self-care (01) | LOC: SPT 06:30 | PROVIDERS: Visit Provider Orthopaedic Surgery | DX: S42.209D Unspecified fracture of upper end of unspecified humerus, subsequent encounter for fracture with routine healing (principal); X58.XXXD Exposure to other specified factors, subsequent encounter | CPT/HCPCS: 97110; 97140; 97161 ==

== ENCOUNTER → 2025-03-29 10:09 | Outpatient (BNVA) | payer BC, SELFPAY | PROVIDERS: PCP Family Medicine; Visit Provider Orthopaedic Surgery | DX: S42.295D Other nondisplaced fracture of upper end of left humerus, subsequent encounter for fracture with routine healing (principal); X58.XXXD Exposure to other specified factors, subsequent encounter | CPT/HCPCS: 73060 ==

== ENCOUNTER 2025-04-22 05:00 | Outpatient (RCR) | payer BC, SELFPAY | END 2025-05-22 23:59 | disposition home or self-care (01) | LOC: SPT 05:00 | PROVIDERS: PCP Family Medicine; Visit Provider Orthopaedic Surgery | DX: S42.209D Unspecified fracture of upper end of unspecified humerus, subsequent encounter for fracture with routine healing (principal); X58.XXXD Exposure to other specified factors, subsequent encounter | CPT/HCPCS: 97110 ==

== ENCOUNTER 2025-05-11 12:57 | Outpatient (CLI) | payer BC, SELFPAY ==
[2025-05-11 13:51] LABS: HIV 1 & 2 Antigen Non-Reactive (Non-Reactiv)
[2025-05-11 14:01] LABS: Hepatitis B Surface Antigen Non-Reactive (Nonreactive)
[2025-05-11 14:02] LABS: Rapid Plasma Reagin Syphilis Nonreactive (Nonreactive)
== END 2025-05-11 12:58 | disposition home or self-care (01) ==
PROVIDERS: PCP Family Medicine; Visit Provider Obstetrics & Gynecology Reproductive Endocrinology
DX: Z11.3 Encounter for screening for infections with a predominantly sexual mode of transmission (principal)
CPT/HCPCS: 36415; 86592; 86803; 87340; 87806

== ENCOUNTER 2025-05-23 05:00 | Outpatient (RCR) | payer BC, SELFPAY | END 2025-06-21 23:59 | disposition home or self-care (01) | LOC: SPT 05:00 | PROVIDERS: PCP Family Medicine; Visit Provider Orthopaedic Surgery | DX: S42.209D Unspecified fracture of upper end of unspecified humerus, subsequent encounter for fracture with routine healing (principal); X58.XXXD Exposure to other specified factors, subsequent encounter | CPT/HCPCS: 97110 ==

== ENCOUNTER 2025-06-22 05:00 | Outpatient (RCR) | payer BC, SELFPAY | END 2025-07-22 23:59 | disposition home or self-care (01) | LOC: SPT 05:00 | PROVIDERS: PCP Family Medicine; Visit Provider Orthopaedic Surgery | DX: S42.209D Unspecified fracture of upper end of unspecified humerus, subsequent encounter for fracture with routine healing (principal); X58.XXXD Exposure to other specified factors, subsequent encounter | CPT/HCPCS: 97110; 97164 ==

== ENCOUNTER 2025-07-08 09:39 | Outpatient (CLI) | payer BC, SELFPAY | END 2025-07-08 09:40 | disposition home or self-care (01) | PROVIDERS: PCP Family Medicine; Visit Provider Obstetrics & Gynecology Reproductive Endocrinology | DX: Z32.00 Encounter for pregnancy test, result unknown (principal) | CPT/HCPCS: 84702 ==

== ENCOUNTER 2025-07-15 11:21 | Outpatient (CLI) | payer BC, SELFPAY | END 2025-07-15 11:22 | disposition home or self-care (01) | LOC: LAB 11:23 | PROVIDERS: PCP Family Medicine; Visit Provider Obstetrics & Gynecology Reproductive Endocrinology | DX: Z13.6 Encounter for screening for cardiovascular disorders (principal) | CPT/HCPCS: 36415; 84702; 86850; 86900 ==

== ENCOUNTER 2025-07-23 06:30 | Outpatient (RCR) | payer BC, SELFPAY | END 2025-08-08 09:48 | disposition home or self-care (01) | LOC: SPT 06:30 | PROVIDERS: PCP Family Medicine; Visit Provider Orthopaedic Surgery | DX: S42.302D Unspecified fracture of shaft of humerus, left arm, subsequent encounter for fracture with routine healing (principal); X58.XXXD Exposure to other specified factors, subsequent encounter | CPT/HCPCS: 97110 ==

== ENCOUNTER → 2025-08-03 11:09 | Outpatient (BNVA) | payer BC, SELFPAY | PROVIDERS: PCP Family Medicine; Visit Provider Nurse Practitioner Women's Health | DX: N92.6 Irregular menstruation, unspecified (principal) | CPT/HCPCS: 81025 ==

== ENCOUNTER → 2025-09-01 09:19 | Outpatient (BNVA) | payer BC, SELFPAY | PROVIDERS: PCP Family Medicine; Visit Provider Nurse Practitioner Women's Health | DX: Z34.81 Encounter for supervision of other normal pregnancy, first trimester (principal); Z3A.12 12 weeks gestation of pregnancy | CPT/HCPCS: 80307; 84315; 85025; 86592; 86762; 86803; 86850; 86900; 87086; 87340; 87806 ==

== ENCOUNTER → 2025-09-20 11:13 | Outpatient (BNVA) | payer BC, SELFPAY | PROVIDERS: PCP Family Medicine; Visit Provider Obstetrics & Gynecology | DX: O09.522 Supervision of elderly multigravida, second trimester (principal); O09.812 Supervision of pregnancy resulting from assisted reproductive technology, second trimester; Z3A.14 14 weeks gestation of pregnancy | CPT/HCPCS: 84315; 87491; 87591; 87624; 87661 ==